=== PATIENT | male | born 1965 | race Two or more races ===

== ENCOUNTER 2022-03-18 14:30 | Emergency (ER) | payer BC ==
[~2022-03-18] VITALS: Ht 172.7 cm; Wt 95.3 kg
[2022-03-18] MEDS ORDERED: NIFEDIPINE 40 MG (15:40)
[2022-03-18] MEDS ORDERED: PAXLOVID 150-11 EACH PO (19:52)
== END 2022-03-18 20:15 | disposition home or self-care (01) ==
LOC: ER 14:30
DX: U07.1 COVID-19 (principal); I10 Essential (primary) hypertension